=== PATIENT | female | born 1955 | race Caucasian/White ===

== ENCOUNTER → 2016-10-30 | Outpatient (CLI) | payer BC, OTHER ==
[~2016-10-30] MED LIST: AMBIEN 5MG TABLE5 MG PO; ASPIRIN E.C. 8181 MG PO; ATENOLOL25 MG PO; CADUET 10 MG-101 TAB PO; CATAPRES 0.1MG0.1 MG PO; COLACE 100100 MG/CAP PO; COREG 6.256.25 MG/TA PO; COREG6.25 MG PO; COZAAR 50MG50 MG/TAB PO; EFFEXOR PO; HCTZ12.5TAB PO; HYGROTON25 MG PO; HYZAAR 12.5 MG-1 TAB PO; LEXAPRO20 MG PO; LIPITOR 10MG10 MG PO; LIPITOR20 MG PO; LISINOPRIL20 MG PO; LORTAB 5/500 501 TAB PO; NEXIUM 40MG40 MG PO; NEXIUM40 MG PO; PREVACID 30MG30 M1 PO; ROXICODONE 55 MG/TAB PO; THEO-24 20200 MG/CAP PO; TIAZAC180 MG PO
[2016-10-30 13:14] LABS: HIV 1/2 Antibodies Non-Reactive; HIV-1p24 Antigen Non-Reactive
== END ==
LOC: COL.LAB 11:19
PROVIDERS: Orthopaedic Surgery
DX: Z01.812 Encounter for preprocedural laboratory examination (principal); M17.12 Unilateral primary osteoarthritis, left knee

== ENCOUNTER → 2016-11-12 | Outpatient (CLI) | payer BC, OTHER | LOC: MC.RAD 07:58 | DX: Z12.31 Encounter for screening mammogram for malignant neoplasm of breast (principal) ==

== ENCOUNTER → 2017-01-24 | Outpatient (CLI) | payer BC, OTHER | LOC: COL.RAD 09:04 | DX: N28.89 Other specified disorders of kidney and ureter (principal); Z85.520 Personal history of malignant carcinoid tumor of kidney ==

== ENCOUNTER → 2017-07-29 | Outpatient (CLI) | payer BC, OTHER | LOC: COL.RAD 07:42 | DX: Z85.520 Personal history of malignant carcinoid tumor of kidney (principal) ==

== ENCOUNTER → 2017-12-05 | Outpatient (CLI) | payer BC, OTHER | LOC: MC.RAD 10:30 | DX: Z12.31 Encounter for screening mammogram for malignant neoplasm of breast (principal) ==

== ENCOUNTER → 2018-07-27 | Outpatient (CLI) | payer BC, OTHER | LOC: COL.RAD 06:49 | DX: Z85.528 Personal history of other malignant neoplasm of kidney (principal) ==

== ENCOUNTER → 2018-12-10 | Outpatient (CLI) | payer MEDICARE, BC, OTHER | LOC: MC.RAD 07:47 | DX: Z12.31 Encounter for screening mammogram for malignant neoplasm of breast (principal) ==

== ENCOUNTER → 2019-08-18 | Outpatient (CLI) | payer MEDICARE, BC, OTHER | LOC: COL.VAS 13:53 | DX: I27.20 Pulmonary hypertension, unspecified (principal) ==

== ENCOUNTER → 2019-12-15 | Outpatient (CLI) | payer MEDICARE, BC, OTHER | LOC: MC.RAD 07:27 | DX: Z12.31 Encounter for screening mammogram for malignant neoplasm of breast (principal) ==

== ENCOUNTER → 2021-01-01 | Outpatient (CLI) | payer MEDICARE, BC, OTHER | LOC: MC.RAD 10:39 | DX: Z12.31 Encounter for screening mammogram for malignant neoplasm of breast (principal) ==

== ENCOUNTER → 2023-01-23 | Outpatient (CLI) | payer MEDICARE, BC, OTHER | LOC: MC.RAD 08:52 | DX: Z12.31 Encounter for screening mammogram for malignant neoplasm of breast (principal) ==